=== PATIENT | male | born 1965 | race Hispanic/Latino ===

== ENCOUNTER 2022-05-08 15:53 | Emergency (ER) | payer SELFPAY ==
[2022-05-08] MEDS ORDERED: Ketorolac Tromethamine 30 MG/ML VIAL ONE (16:47)
== END 2022-05-08 16:54 | disposition home or self-care (01) ==
LOC: ERS 15:53
DX: M54.2 Cervicalgia (principal); M79.602 Pain in left arm
CPT/HCPCS: 96372; 99283; J1885

== ENCOUNTER 2023-01-16 08:54 | Emergency (ER) | payer SELFPAY ==
[2023-01-16 09:08] LABS: Red Blood Cell (RBC) Count 5.36 mill/uL (4.70-6.10); White Blood Cell (WBC) Count 8.3 10x3/uL (4.8-10.8)
[2023-01-16 09:09] LABS: #Eosinphils 0.2 thou/uL (0.0-0.7); #Monocytes 0.5 thou/uL (0.11-0.59); #Neutrophils 5.6 thou/uL (1.40-6.50); %Basophils 0.2 % (0.0-1.0); %Eosinophils 2.2 % (0.0-10.0); %Lymphocytes 23.9 % (21.0-51.0); %Monocytes 6.3 % (0.0-10.0); %Neutrophils 67.2 % (42.0-75.0); Hematocrit 47.4 % (42.0-52.0); Mean Corpuscular HGB CONC 33.8 g/dL (32.0-36.0); Mean Corpuscular Hemoglobin 29.9 pg (27.0-31.0); Mean Corpuscular Volume 88.4 fl (78.0-98.0); Mean Platelet Volume 11.1 fL (7.4-10.4); Platelet Count 213 10x3/uL (130-400); RBC Distribution Width 13.3 % (11.5-14.5)
[2023-01-16 09:24] LABS: INR-International Normal Ratio 0.9; PTT 27.8 sec (22.9-36.1)
[2023-01-16 09:31] LABS: ALT (SGPT) 17 U/L (8-55); AST (SGOT) 17 U/L (5-34); Albumin 4.3 g/dL (3.5-5.0); Alkaline Phosphatase 79 U/L (40-110); Anion Gap 12 mmol/L (10-20); BUN (Urea Nitrogen) 12 mg/dL (8.4-25.7); Bilirubin, Total 0.6 mg/dL (0.2-1.2); Calc. Creatinine Clearance 0 mL/min (70-130); Carbon Dioxide 27 mmol/L (22-29); Chloride 106 mmol/L (98-107); Estimated GFR 77; Globulin 3.1 g/dL (2.4-3.5); Glucose 116 mg/dL (70-105); Potassium 4.5 mmol/L (3.5-5.1); Protein, Total 7.4 g/dL (6.0-8.3); Sodium 140 mmol/L (136-145)
[2023-01-16 09:35] LABS: Troponin I 0.015 ng/mL (< 0.028)
[2023-01-16] MEDS ORDERED: hydrALAZINE 20 MG/ML VIAL ONE ×2 (09:43→10:20)
[2023-01-16] MEDS ORDERED: Aspirin 300 MG Suppository ONE (10:20)
[2023-01-16] MEDS ORDERED: Iopamidol-370 76% 500 ML MDV (1 ML CHARGE) ONE (10:46)
[2023-01-16 11:37] LABS: Magnesium 2.1 mg/dL (1.6-2.6)
== END 2023-01-16 11:59 | disposition short-term general hospital (02) ==
LOC: ERS 08:54
DX: I63.9 Cerebral infarction, unspecified (principal); I63.311 Cerebral infarction due to thrombosis of right middle cerebral artery
CPT/HCPCS: 0042T; 70450; 70496; 70498; 71045; 80053; 83735; 83880; 84443; 84484; 85025; 85610; 85730; 93005; 96361; 96374; 99292; J0360; Q9967

== ENCOUNTER 2023-02-07 10:52 | Emergency (ER) | payer SELFPAY | END 2023-02-07 13:12 | disposition left against medical advice (07) | LOC: ERS 10:52 | DX: Z53.21 Procedure and treatment not carried out due to patient leaving prior to being seen by health care provider (principal) ==